=== PATIENT | female | born 2000 | race Two or more races ===

== ENCOUNTER 2024-04-06 18:19 | Emergency (ER) | payer OTHER ==
[~2024-04-06] VITALS: Ht 157.5 cm; Wt 83.0 kg
[2024-04-06 18:40] VITALS: BP 132/70; TEMP 98.2; O2SAT 99
== END 2024-04-06 21:03 | disposition home or self-care (01) ==
LOC: ER 18:29
DX: Z48.00 Encounter for change or removal of nonsurgical wound dressing (principal)